=== PATIENT | male | born 1955 | race Caucasian/White ===

== ENCOUNTER 2018-02-14 12:56 | Observation (INO) | payer OTHER ==
[2018-02-14 13:49] LABS: #Eosinphils 0.1 thou/uL (0.0-0.7); #Lymphocytes 2.7 thou/uL (1.20-3.40); #Monocytes 0.6 thou/uL (0.11-0.59); #Neutrophils 3.7 thou/uL (1.40-6.50); %Basophils 0.2 % (0.0-1.0); %Eosinophils 1.6 % (0.0-10.0); %Lymphocytes 37.6 % (21.0-51.0); %Monocytes 8.3 % (0.0-10.0); %Neutrophils 52.3 % (42.0-75.0); Hemoglobin 12.9 g/dL (14.0-18.0); Mean Corpuscular HGB CONC 32.7 g/dL (32.0-36.0); Mean Corpuscular Hemoglobin 24.1 pg (27.0-31.0); Mean Corpuscular Volume 73.7 fL (78.0-98.0); Mean Platelet Volume 8.6 fL (7.4-10.4); Platelet Count 139 thou/uL (130-400); RBC Distribution Width 13.6 % (11.5-14.5); Red Blood Cell (RBC) Count 5.35 mill/uL (4.70-6.10); White Blood Cell (WBC) Count 7.1 thou/uL (4.8-10.8)
[2018-02-14 14:02] LABS: CKMB 2.2 ng/mL (0-6.6); Troponin I 0.029 ng/mL (< 0.028)
[2018-02-14 14:03] LABS: Hypochromia SLIGHT = 6-15 cells (100X) (0-5/hpf); MDiff Complete? YES; Microcytosis SLIGHT = 6-15 cells (100X) (0-5/hpf); PLT Morphology Comment Appears Adequate; Polychromasia SLIGHT = 2-3 cells (100X) (0-2/hpf)
[2018-02-14 14:04] LABS: ALT (SGPT) 31 U/L (8-55); AST (SGOT) 26 U/L (5-34); Albumin 3.7 g/dL (3.4-4.8); Alkaline Phosphatase 73 U/L (40-150); Anion Gap 10 mmol/L (10-20); BUN (Urea Nitrogen) 36 mg/dL (8.4-25.7); Bilirubin, Total 0.4 mg/dL (0.2-1.2); CK (CPK) 125 U/L (30-200); Calc. Creatinine Clearance 0 mL/min (70-130); Calcium 9.3 mg/dL (7.8-10.44); Carbon Dioxide 26 mmol/L (23-31); Chloride 107 mmol/L (98-107); Estimated GFR-MDRD 30; Globulin 2.8 g/dL (2.4-3.5); Glucose 120 mg/dL (80-115); Lipase 130 U/L (8-78); Potassium 4.6 mmol/L (3.5-5.1); Protein, Total 6.5 g/dL (5.8-8.1); Sodium 138 mmol/L (136-145)
--- NOTE | 2018-02-14 14:32 | RAD ---
CHEST 1 VIEW: Date: 02/14/18 INDICATION: Chest pain. COMPARISON: None. FINDINGS: There is mild cardiomegaly. There are patchy air space opacities within the right lung base. Left fuentes g is clear. There is a dual lead pacemaker overlying the left chest wall. No acute osseous abnormalit y is evident. IMPRESSION: 1. Patchy air space opacities in right lower lobe. Recommend correlation for pneumonia. Radiographic follow-up to resolution is recommended. 2. Mild cardiomegaly without evidence of cardiac decompensation. POS: [facility]
[2018-02-14] MEDS ORDERED: Enoxaparin Sodium 100 MG/ML SYRINGE ONE (15:56)
[2018-02-14] MEDS ORDERED: Enoxaparin Sodium 60 MG/0.6 ML SYRINGE ONE (15:57)
[2018-02-14 17:45] LABS: Troponin I 0.037 ng/mL (< 0.028)
[2018-02-14] MEDS ORDERED: cloNIDine 0.1 MG TAB PO PRN (19:20)
[2018-02-14] MEDS ORDERED: Dextrose 50% Abboject 50 ML SYRINGE SLOW IVP PRN (19:20)
[2018-02-14] MEDS ORDERED: Nitroglycerin 0.4 MG TAB (25 Tab Bottle) PO PRN (19:20)
[2018-02-14] MEDS ORDERED: hydrALAZINE 20 MG/ML VIAL SLOW IVP PRN (19:20)
[2018-02-14] MEDS ORDERED: Ondansetron PF 4 MG/2 ML Vial IVP PRN (19:20)
[2018-02-14] MEDS ORDERED: Acetaminophen 500 MG TAB PO PRN (19:20)
[2018-02-14] MEDS ORDERED: Ondansetron ODT 4 MG TAB PO PRN (19:20)
[2018-02-14] MEDS ORDERED: Dextrose 5% in Water 1,000 ML IV PRN (19:20)
[2018-02-14 19:41] VITALS: BMI 47.7
[2018-02-14 20:15] LABS: Troponin I 0.043 ng/mL (< 0.028)
[2018-02-14] MEDS: Famotidine 20 MG TAB PO SCH (22:37)
[2018-02-14] MEDS: Enoxaparin Sodium 80 MG/0.8 ML SYRINGE SC SCH (22:38)
--- NOTE | 2018-02-14 23:59 | HP ---
DATE OF ADMISSION: 02/14/2018 PRIMARY CARE PHYSICIAN: Clarisa phillips. CHIEF COMPLAINT: General weakness and dizziness. HISTORY OF PRESENT ILLNESS: This is a 62-year-old male who presented to [facility] complaining of increasing dizziness, general weakness, sharp pain to his upper shoulder blades and right lower extremity pain. The patient states he was getting of the shower preparing to go to a family when he felt lightheaded, dizzy, diaphoretic, and ill. The patient also experienced some sharp pain to his chest and back region. At which point, he sat down to try to relieve his symp toms. The patient states he had similar symptoms prior to undergoing a cardiac stent placement sever al years prior to this evaluation. The patient does admit to history of coronary artery disease with a cardiac stent in place, taking aspirin 81 mg daily. The patient states he recently traveled from [facility] to [facility] to attend a family , sitting in the car for ove r 6 hours. The patient states that while at a , he was unable to walk across the room without becoming extremely short of breath, generally weak and feeling like he was going to pass out. The p toby's states he looked ashen and Leung and sat down. The patient was evaluated by EMS slim tran and given aspirin and transported to the emergency room for evaluation. The patient does admit to a similar episode several weeks prior to this evaluation, resolving spontaneously. The patient stat es he scheduled for a cardiac stress test as well as a pacemaker device check in the next week. The patient denied any specific change to his chronic medication regimen. Family members with a recent i llness, recent vaccinations, fever, chills, or diarrhea. The patient underwent general evaluation in the emergency room with cardiac biomarkers showing elevated levels ranging between 0.029-0.037. The patient underwent EKG evaluation showing no acute changes with AV pacing. Chest imaging showed card iomegaly and bibasilar atelectasis. Due to patient's chronic kidney disease, the patient did not und ergo CT angiogram of the chest with recommendations to pursue ventilation perfusion study to rule out pulmonary embolus. PAST MEDICAL HISTORY: 1. Coronary artery disease status post cardiac stent placement. 2. History of atrial fibrillation, status post maze procedure. 3. Diabetes mellitus type 2, insulin requiring. 4. Hypertension. 5. Morbid obesity. 6. Obstructive sleep apnea. 7. Chronic kidney disease stage 3. PAST SURGICAL HISTORY: 1. Status post cardiac stent placement. 2. Status post pacemaker placement. 3. Status post maze procedure. CURRENT MEDICATIONS: List will need to be obtained by the family members, unavailable currently. ALLERGIES: No known drug allergies. FAMILY HISTORY: Positive for hypertension and diabetes mellitus. SOCIAL HISTORY: The patient resides outside of [place], [place]. No current alcohol, tobacco or illic it drug use. Accompanied by his in the emergency room. REVIEW OF SYSTEMS: The following complete review of systems was negative, unless otherwise mentioned in the HPI or below: Constitutional: Weight loss or gain, ability to conduct usual activities. Ski n: Rash, itching. Eyes: Double vision, pain. ENT/Mouth: Nose bleeding, neck stiffness, pain, tend erness. Cardiovascular: Palpitations, dyspnea on exertion, orthopnea. Respiratory: Shortness of b reath, wheezing, cough, hemoptysis, fever or night sweats. Gastrointestinal: Poor appetite, abdomin al pain, heartburn, nausea, vomiting, constipation, or diarrhea. Genitourinary: Urgency, frequency, dysuria, nocturia. Musculoskeletal: Pain, swelling. Neurologic/Psychiatric: Anxiety, depression. Allergy/Immunologic: Skin rash, bleeding tendency. Otherwise negative except as stated per HPI. PHYSICAL EXAMINATION: VITAL SIGNS: Currently, blood pressure 131/72, pulse 77, respiratory rate 20, temperature 97.5 degre es Fahrenheit, O2 saturation 98% on room air. GENERAL APPEARANCE: This is a 62-year-old male, alert and oriented x3, pleasant, in no acu te distress. HEENT: Pupils are equal, round, and reactive to light and accommodation. Extraocular muscles are in tact. No scleral icterus, no conjunctival injection. Nares patent. OP is clear. Teeth in fair rep air. NECK: Supple, no cervical adenopathy, no thyromegaly, no carotid bruits, no JVD appreciated. Cervic al spine with full active and passive range of motion. CHEST: Lungs are clear to auscultation bilaterally. CARDIOVASCULAR: S1, S2 with distant heart sounds. No murmur, rub or gallop appreciated. ABDOMEN: Obese, soft. Landmarks are difficult to palpate due to patient's body habitus. No rebound or guarding noted. EXTREMITIES: Warm and dry with fair turgor. No asymmetric edema noted. Bilateral pitting edema to the proximal shins. Bilateral calf tenderness to palpation. Pulses palpable distally at the dorsali s pedis, posterior tibial, and popliteal arteries bilaterally. Capillary refill less than 2 seconds. NEUROLOGIC: Cranial nerves II-XII are grossly intact. No focal or lateralizing signs appreciated. PERTINENT LABORATORY AND X-RAY FINDINGS: Sodium 138, potassium 4.6, chloride 107, CO2 of 26, BUN 36, creatinine 2.24, estimated GFR of 30, glucose 120, calcium 9.3. LFTs within normal limits. Troponi n I ranged between 0.029-0.037. BNP 109. Lipase 130. CBC showed a white blood cell count of 7.1, h emoglobin 13, hematocrit 40, MCV 74, platelet count 139 with 52% neutrophils. D-dimer 1.54. Portabl e chest x-ray dated 02/14/2018 showed airspace opacities in the right lower lobe. Mild cardiomegaly. EKG dated 02/14/2018 by my interpretation shows AV pacing with heart rates in the 70s-80s. No acut e ST-T wave changes noted. ASSESSMENT AND PLAN: 1. Chest pain. The patient will be placed in observation status. We will continue to trend cardiac biomarkers. Consult Cardiology Service in the a.m. given elevated troponin I initially. We will co ntinue aspirin 325 mg daily. Check fasting lipid profile. Plan for ventilation perfusion study to r ule out pulmonary embolus given patient's multiple risk factors, recent travel history and lower extr emity edema. 2. Elevated troponin I. Questionable demand ischemia. We will continue to trend cardiac biomarkers as outlined in #1. Continue aspirin 325 mg daily. Consult Cardiology service in the a.m. Check 2D transthoracic echocardiogram. 3. Chronic kidney disease stage 3 to 4. We will avoid nephrotoxic agents and limit contrast exposur e. Serial creatinine monitoring. 4. Elevated lipase. Questionable etiology. Clinical exam unrevealing. Repeat lipase in the a.m. 5. Coronary artery disease, chronic. Resume home cardiac medication once confirmed with family memb ers. 6. Diabetes mellitus type 2. Insulin sliding scale for reflexive coverage. ADA diet. Resume home diabetic regimen once confirmed. 7. Prophylaxis. Lovenox 30 mg subcutaneously daily. Pepcid 20 mg p.o. b.i.d. 8. Code status is FULL. Surrogate medical decision maker is patient's spouse.
[2018-02-15 05:52] LABS: Eosinophils 1 % (0-10); Hemoglobin 11.7 g/dL (14.0-18.0); Lymphocytes 54 % (21-51); MDiff Complete? YES; Mean Corpuscular HGB CONC 31.6 g/dL (32.0-36.0); Mean Corpuscular Hemoglobin 23.8 pg (27.0-31.0); Mean Corpuscular Volume 75.2 fL (78.0-98.0); Mean Platelet Volume 9.3 fL (7.4-10.4); Monocytes 6 % (0-10); Neutrophil 39 % (42-75); PLT Morphology Comment Appears Adequate; Platelet Count 124 thou/uL (130-400); RBC Distribution Width 13.8 % (11.5-14.5); Red Blood Cell (RBC) Count 4.92 mill/uL (4.70-6.10); White Blood Cell (WBC) Count 5.5 thou/uL (4.8-10.8)
[2018-02-15 06:12] LABS: Anion Gap 14 mmol/L (10-20); BUN (Urea Nitrogen) 40 mg/dL (8.4-25.7); Calc. Creatinine Clearance 72 mL/min (70-130); Calcium 8.9 mg/dL (7.8-10.44); Carbon Dioxide 21 mmol/L (23-31); Cardiac Risk 4.2 (Less than 4.5); Chloride 110 mmol/L (98-107); Cholesterol 105 mg/dl (< 200 Desired); Estimated GFR-MDRD 28; Glucose 172 mg/dL (80-115); HDL Cholesterol 25 mg/dL (>60 Neg Risk); LDL Cholesterol, Calculated 53 mg/dL; Potassium 4.5 mmol/L (3.5-5.1); Sodium 140 mmol/L (136-145); Triglycerides 134 mg/dL (Less than 150)
[2018-02-15] MEDS: HumaLOG 300 UNITS/3 ML VIAL SC PRN (06:34)
[2018-02-15] MEDS: Enoxaparin Sodium 80 MG/0.8 ML SYRINGE SC SCH (08:59)
[2018-02-15] MEDS ORDERED: Aspirin 325 MG TAB PO SCH (09:00)
--- NOTE | 2018-02-15 09:59 | ULT ---
ULTRASOUND WITH DOPPLER DUPLEX VENOUS LOWER EXTREMITY BILATERAL: Date: 02/15/18 CPT: 94097 ICD-10-PCS: [id number] INDICATION: Edema. TECHNIQUE: Color flow Doppler, spectral waveform analysis of pulsed Doppler, and [place]-scale imaging with jose juan christophe and augmentation, were used to evaluate the bilateral common femoral, femoral, popliteal, upsetting machine operator ior tibial, and superficial femoral, veins; and the proximal portions of the profunda femoral and gre ater saphenous, veins. FINDINGS: There is appropriate compressibility and flow within the imaged deep vein system of each lower extrem ity. IMPRESSION: No deep venous thrombosis of the imaged bilateral lower extremities. POS: [facility]
--- NOTE | 2018-02-15 12:29 | NM ---
NUCLEAR MEDICINE VENTILATION PERFUSION EVALUATION: Date: 02/15/18 CLINICAL HISTORY: Edema, respiratory difficulty. Clinical concern for pulmonary embolus. RADIOPHARMACEUTICAL: 8.9 mCi Xenon inhaled, 6.6 mCi technetium-99m MAA IV. FINDINGS: Evaluation of the ventilation portion of the exam reveals homogeneous radiotracer distribution throug hout each lung without significant retention. On perfusion imaging, there is a moderate sized focal p erfusion defect involving the lateral left mid lung zone. Right lung is homogeneous. Evaluating yesterday's chest radiograph, there is a battery pack from cardiac pacing device in the le ft chest, in a location that is correlative to the perfusion defect. IMPRESSION: Low probability VQ scan for pulmonary embolus. POS: [facility]
[2018-02-15] MEDS ORDERED: Spiriva 18 MCG CAP (Box of 5 Caps) INH PRN (18:28)
[2018-02-15] MEDS ORDERED: PROVENTIL INHALER 6.7 G (200 INHALATIONS) INH PRN (18:28)
--- NOTE | 2018-02-15 18:30 | PDOC.PN ---
- Subjective Encounter Start Date: 02/15/18 Encounter Start Time: 18:00 Subjective: f/u for gen weakness, CP, dizziness and elevated trop I. Feels ok overall -: and tolerated po intake without difficulty. No recurrent CP. - Objective Resuscitation Status: Resuscitation Status FULL:Full Resuscitation MAR Reviewed: Yes Vital Signs & Weight: Vital Signs (12 hours) Temp Pulse Resp BP Pulse Ox 02/15/18 15:54 97.5 F L 65 20 130/60 93 L 02/15/18 11:13 97.7 F 65 20 134/61 97 02/15/18 07:19 98.1 F 61 16 116/54 L 97 Weight Weight 352 lb 1.6 oz I&O: 02/14/18 02/15/18 02/16/18 06:59 06:59 06:59 Intake Total 240 720 Output Total 600 350 Balance -360 370 Result Diagrams: 02/15/18 04:48 02/15/18 04:48 Additional Labs: Accuchecks 02/15/18 02/15/18 02/14/18 17:17 11:16 20:04 POC Glucose 177 H 137 H 111 H Radiology Reviewed by me: Yes (V/Q scan - negative for PE) EKG Reviewed by me: Yes (Tele - Paced) Phys Exam - Physical Examination Constitutional: NAD HEENT: PERRLA, sclera anicteric, oral pharynx no lesions Neck: no nodes, no JVD, supple, full ROM Respiratory: no wheezing, no rales, no rhonchi, clear to auscultation bilateral S1, S2 Cardiovascular: RRR, no significant murmur, no rub, gallop Gastrointestinal: soft, non-tender, no distention, positive bowel sounds Musculoskeletal: pulses present, edema present Neurological: normal sensation, moves all 4 limbs Psychiatric: normal affect, A&O x 3 Skin: no rash, normal turgor, cap refill <2 seconds Dx/Plan (1) Chest pain Code(s): R07.9 - CHEST PAIN, UNSPECIFIED Status: Acute Comment: ? angina, plan for Cardiolite stress in am, continue ASA daily (2) Elevated troponin I level Code(s): R74.8 - ABNORMAL LEVELS OF OTHER SERUM ENZYMES Status: Acute Comment: Mild elevation, likely demand state, see #1 (3) CKD (chronic kidney disease), stage III Code(s): N18.3 - CHRONIC KIDNEY DISEASE, STAGE 3 (MODERATE) Status: Chronic Comment: Avoid nephrotoxic meds and limit contrast exposure (4) Elevated lipase Code(s): R74.8 - ABNORMAL LEVELS OF OTHER SERUM ENZYMES Status: Acute Comment: Repeat Lipase in am (5) CAD (coronary artery disease) Code(s): I25.10 - ATHSCL HEART DISEASE OF [place] CORONARY ARTERY W/O ANG PCTRS Status: Chronic Comment: See #1, continue ASA (6) DM II (diabetes mellitus, type II), controlled Code(s): E11.9 - TYPE 2 DIABETES MELLITUS WITHOUT COMPLICATIONS Status: Chronic Comment: ISS, resume home DM regimen, ADA - Plan plan discussed w/ family, out of bed/ambulate, DVT proph w/SCDs Stable overall -: [employer] in am -: Continue ASA 81mg daily -: D/C Lovenox -: Low volume IVF's * AM lab: BMP, Lipase
[2018-02-15] MEDS: Sodium Chloride 0.9% 1,000 ML IV SCH (18:33)
[2018-02-15] MEDS: Famotidine 20 MG TAB PO SCH (20:50)
[2018-02-16] MEDS: Ipratropium Bromide 2.5 ml Neb NEB SCH ×4 (00:57→19:15)
--- NOTE | 2018-02-16 02:46 | CON ---
DATE OF CONSULTATION: 02/15/2018 HISTORY OF PRESENT ILLNESS: Yusuf Lane is a 62-year-old white male from the [facility] who was in town for a and started having some pain between his scapula and was brought to the hospital. He states that while living in [place], [place], 6 or 7 years ago, he started to have atrial fibrillation. He underwent a maze procedure through bilateral thoracotomies. Apparently with this, he developed heart rate of 20 per minute and a permanent pacemaker needed to be placed. He then developed pneumonia after that and was in a coma. He developed renal insufficiency and was in the hospital approximately 3 weeks after the maze procedure. Two or three years ago, he had a coronary artery stent placed. He then traveled from [facility] to [facility] for over 6 hours. He got up to take a shower and felt extremely weak after taking the shower yesterday morning and also had some pain between the scapula on the back. He went to the and apparently was very weak, had trouble even getting up. His stated that he was very pale and ashen. He also continues intermittently have this infrascapular pain. Troponin I was minimally elevated in the emergency room and he was admitted for further evaluation. Due to the prolonged 6-hour trip, he underwent a V/Q scan (CT angiogram was not performed due to his renal insufficiency). This was low probability for pulmonary embolism. He also underwent lower extremity venous ultrasound, which revealed no deep venous thrombosis. At the present time, he feels well. PAST MEDICAL HISTORY: Coronary artery disease, history of atrial fibrillation, diabetes, hypertension, hypercholesterolemia, obesity, obstructive sleep apnea, chronic kidney disease. OPERATIONS: Maze procedure, pacemaker placement ([employer]), and coronary artery stent placement. MEDICATIONS: Albuterol inhaler p.r.n., aspirin 81 daily, atorvastatin 10 mg daily, carvedilol ER 40 mg daily, cetirizine 10 mg daily, vitamin B12 of 1000 mcg daily, fosinopril 20 mg daily, furosemide 40 daily, Novolog 5 units p.r.n., insulin, Victoza 1.2 daily, and Spiriva inhaler. ALLERGIES: DILTIAZEM, cause angioedema with throat and tongue swelling. SOCIAL HISTORY: Does not smoke or drink. Lives outside of [place]. FAMILY HISTORY: Negative for coronary artery disease. REVIEW OF SYSTEMS: Twelve-point review of systems, otherwise unremarkable. PHYSICAL EXAMINATION: VITAL SIGNS: Blood pressure 130/60, pulse of 65, blood pressure in the emergency room was as low as 96/60. HEENT: PERRL with bilateral ear creases. LUNGS: Clear. CARDIAC: S1 and S2 are normal without any S3, S4 or murmurs. ABDOMEN: Obese. Normal bowel sounds, no tenderness. EXTREMITIES: Revealed no clubbing or cyanosis. There was 1+ pretibial edema. NEUROLOGIC: Grossly intact. SKIN: Warm and dry. LABORATORY DATA: EKG reveals A-V pacing. Sodium 140, potassium 4.5, chloride 110, carbon dioxide 21, BUN 40, creatinine 2.39. Troponin I is up to 0.043. Cholesterol 105, triglycerides 134, HDL 25, LDL 53. BNP 108.6. D-dimer 1.54. Hemoglobin 11.7, hematocrit 37.0, white count 5500, and platelets 124,000. IMPRESSION: 1. Atypical infrascapular pain. 2. Elevated troponin I's, probably secondary to chronic kidney disease. 3. Episode of extreme weakness, which may be related to blood pressure. He was somewhat hypotensive in the emergency room and since being admitted. The carvedilol and fosinopril as well as Lasix has been discontinued and blood pressure has improved somewhat. 4. History of hypertension, hyperlipidemia, under good control. 5. Diabetes. 6. Obesity. 7. History of coronary artery stent placement. 8. History of atrial fibrillation, status post operative maze procedure. 9. Status post pacemaker placement. 10. Anemia. RECOMMENDATIONS: I feel that his minimally elevated troponin I's probably secondary to his chronic kidney disease. Fosinopril and furosemide have been held at this time, his blood pressure has started to normalize. With his history of atrial fibrillation, we will gradually resume carvedilol. He will undergo Adenosine Cardiolite testing. Also he will be started on intravenous fluids in case cardiac catheterization is needed. He is continued to be monitored daily. He also was anemic and has hypochromic-microcytic anemia. Iron and iron binding capacity will be checked. [facility]
[2018-02-16 05:19] LABS: Anion Gap 12 mmol/L (10-20); BUN (Urea Nitrogen) 35 mg/dL (8.4-25.7); Calc. Creatinine Clearance 89 mL/min (70-130); Calcium 9.1 mg/dL (7.8-10.44); Carbon Dioxide 20 mmol/L (23-31); Chloride 108 mmol/L (98-107); Estimated GFR-MDRD 35; Glucose 155 mg/dL (80-115); Iron 78 ug/dL (65-175); Iron Binding Capacity, Total 264 mcg/dL (261-462); Lipase 110 U/L (8-78); Potassium 4.7 mmol/L (3.5-5.1); Sodium 135 mmol/L (136-145)
[2018-02-16] MEDS ORDERED: Furosemide 40 MG TAB PO SCH (09:00)
[2018-02-16] MEDS ORDERED: INSULIN GLARGINE HUM REC ANLOG 150 UNIT SQ SCH (09:00)
[2018-02-16] MEDS ORDERED: CARVEDILOL PHOSPHATE 40 MG PO SCH (09:00)
[2018-02-16] MEDS ORDERED: Non-Formulary Item 1 EACH (Cetirizine Hcl [Allergy Relief] 10 MG) PO SCH (09:00)
[2018-02-16] MEDS ORDERED: Liraglutide [Victoza 2-Pak] 1.2 MG SQ SCH (09:00)
[2018-02-16] MEDS: Atorvastatin Calcium 10 MG TAB PO SCH (09:14)
[2018-02-16] MEDS: Cyanocobalamin (Vitamin B-12) 1,000 MCG TAB PO SCH (09:14)
[2018-02-16] MEDS: Carvedilol 6.25 MG TAB PO SCH ×2 (12:18→17:25)
[2018-02-16] MEDS: Loratadine 10 MG TAB PO SCH (12:19)
[2018-02-16] MEDS: Insulin Glargine 120 UNITS in Pre-Filled Syringe 1 EACH SC SCH (12:22)
[2018-02-16] MEDS: Sodium Chloride 0.9% 1,000 ML IV SCH (12:25)
--- NOTE | 2018-02-16 17:23 | PDOC.PN ---
- Subjective Encounter Start Date: 02/16/18 Encounter Start Time: 17:10 Subjective: f/u for CP awaiting stress testing. No CP, SOB. - Objective Resuscitation Status: Resuscitation Status FULL:Full Resuscitation MAR Reviewed: Yes Vital Signs & Weight: Vital Signs (12 hours) Temp Pulse Resp BP BP BP Pulse Ox 02/16/18 15:28 97.7 F 66 20 138/64 95 02/16/18 12:14 60 14 02/16/18 11:48 70 16 137/65 96 02/16/18 08:00 98.2 F 74 20 124/58 L 96 02/16/18 06:22 65 14 98 Weight Weight 352 lb 1.6 oz I&O: 02/15/18 02/16/18 02/17/18 06:59 06:59 06:59 Intake Total 240 720 811 Output Total 012 000 5866 Ihoitmq -748 -105 -889 Result Diagrams: 02/15/18 04:48 02/16/18 04:28 Additional Labs: Accuchecks 02/16/18 02/16/18 02/15/18 16:47 11:42 20:30 POC Glucose 224 H 133 H 196 H 02/15/18 17:17 POC Glucose 177 H Radiology Reviewed by me: Yes (2D echo - EF 45-50%) EKG Reviewed by me: Yes (Tele - Paced) Phys Exam - Physical Examination Constitutional: NAD HEENT: PERRLA, sclera anicteric, oral pharynx no lesions Neck: no nodes, no JVD, supple, full ROM Respiratory: no wheezing, no rales, no rhonchi, clear to auscultation bilateral S1, S2 Cardiovascular: RRR, no significant murmur, no rub, gallop Gastrointestinal: soft, non-tender, no distention, positive bowel sounds Musculoskeletal: pulses present, edema present Neurological: non-focal, normal sensation, moves all 4 limbs Psychiatric: normal affect, A&O x 3 Skin: normal turgor, cap refill <2 seconds Dx/Plan (1) Chest pain Code(s): R07.9 - CHEST PAIN, UNSPECIFIED Status: Acute Comment: ? angina, plan for Cardiolite stress in am, continue ASA daily (2) Elevated troponin I level Code(s): R74.8 - ABNORMAL LEVELS OF OTHER SERUM ENZYMES Status: Acute Comment: Mild elevation, likely demand state, see #1 (3) CKD (chronic kidney disease), stage III Code(s): N18.3 - CHRONIC KIDNEY DISEASE, STAGE 3 (MODERATE) Status: Chronic Comment: Avoid nephrotoxic meds and limit contrast exposure (4) Elevated lipase Code(s): R74.8 - ABNORMAL LEVELS OF OTHER SERUM ENZYMES Status: Acute Comment: Repeat Lipase in am (5) CAD (coronary artery disease) Code(s): I25.10 - ATHSCL HEART DISEASE OF [place] CORONARY ARTERY W/O ANG PCTRS Status: Chronic Comment: See #1, continue ASA (6) DM II (diabetes mellitus, type II), controlled Code(s): E11.9 - TYPE 2 DIABETES MELLITUS WITHOUT COMPLICATIONS Status: Chronic Comment: ISS, resume home DM regimen, ADA - Plan plan discussed w/ family, out of bed/ambulate Stable overall -: Awaiting DIRECTOR OF CARDIAC REHABILITATION in am -: Continue IVF's -: ASA 81mg po daily -: AM lab: BMP * .
[2018-02-16] MEDS: HumaLOG 300 UNITS/3 ML VIAL SC PRN ×2 (17:27→20:41)
[2018-02-16] MEDS: Famotidine 20 MG TAB PO SCH (20:40)
[2018-02-17] MEDS: Ipratropium Bromide 2.5 ml Neb NEB SCH ×4 (00:28→19:04)
[2018-02-17 04:54] LABS: Anion Gap 13 mmol/L (10-20); BUN (Urea Nitrogen) 35 mg/dL (8.4-25.7); Calc. Creatinine Clearance 97 mL/min (70-130); Calcium 8.7 mg/dL (7.8-10.44); Carbon Dioxide 21 mmol/L (23-31); Chloride 107 mmol/L (98-107); Estimated GFR-MDRD 39; Glucose 115 mg/dL (80-115); Potassium 4.4 mmol/L (3.5-5.1); Sodium 137 mmol/L (136-145)
[2018-02-17] MEDS: Carvedilol 6.25 MG TAB PO SCH ×2 (08:04→17:27)
[2018-02-17] MEDS: Atorvastatin Calcium 10 MG TAB PO SCH (08:05)
[2018-02-17] MEDS: Sodium Chloride 0.9% 1,000 ML IV SCH (10:57)
[2018-02-17] MEDS: Insulin Glargine 120 UNITS in Pre-Filled Syringe 1 EACH SC SCH (10:58)
[2018-02-17] MEDS: Loratadine 10 MG TAB PO SCH (10:59)
[2018-02-17] MEDS: Cyanocobalamin (Vitamin B-12) 1,000 MCG TAB PO SCH (10:59)
[2018-02-17] MEDS ORDERED: Regadenoson 0.4 MG/5 ML SYRINGE ONE (14:49)
--- NOTE | 2018-02-17 15:36 | PDOC.PN ---
- Subjective Encounter Start Date: 02/17/18 Encounter Start Time: 15:35 Subjective: f/u for CP with completion of first portion of [employer] today. Awaiting -: resting imaging in am. Overall feeling ok. - Objective Resuscitation Status: Resuscitation Status FULL:Full Resuscitation MAR Reviewed: Yes Vital Signs & Weight: Vital Signs (12 hours) Temp Pulse Resp BP BP Pulse Ox 02/17/18 15:08 80 20 02/17/18 10:55 98.0 F 78 20 154/67 H 95 02/17/18 08:17 86 20 94 L 02/17/18 07:33 98.4 F 61 20 152/65 H 94 L 02/17/18 03:51 72 145/68 H Weight Weight 352 lb 8 oz I&O: 02/16/18 02/17/18 02/18/18 06:59 06:59 06:59 Intake Total 720 2247 154 Output Total 825 2525 275 Balance -105 -278 -121 Result Diagrams: 02/15/18 04:48 02/17/18 04:00 Additional Labs: Accuchecks 02/17/18 02/16/18 02/16/18 11:04 20:11 16:47 POC Glucose 238 H 244 H 224 H Laboratory Tests 02/15/18 02/16/18 04:48 04:28 BUN 35 H Creatinine 1.94 H Triglycerides 134 Cholesterol 105 LDL Cholesterol, Calc 53 HDL Cholesterol 25 Lipase 110 H Radiology Reviewed by me: Yes (2D echo - EF 45-50%, limited exam) EKG Reviewed by me: Yes (Tele - pacing) Phys Exam - Physical Examination Constitutional: NAD HEENT: PERRLA, sclera anicteric, oral pharynx no lesions Neck: no nodes, no JVD, supple, full ROM Respiratory: no wheezing, no rales, no rhonchi, clear to auscultation bilateral Cardiovascular: RRR, no significant murmur, no rub, gallop Gastrointestinal: soft, non-tender, no distention, positive bowel sounds Musculoskeletal: pulses present, edema present Neurological: normal sensation, moves all 4 limbs Psychiatric: normal affect, A&O x 3 Skin: no rash, normal turgor, cap refill <2 seconds Dx/Plan (1) Chest pain Code(s): R07.9 - CHEST PAIN, UNSPECIFIED Status: Acute Comment: ? angina, 2- day Cardiolite stress pending, continue ASA daily (2) Elevated troponin I level Code(s): R74.8 - ABNORMAL LEVELS OF OTHER SERUM ENZYMES Status: Acute Comment: Mild elevation, likely demand state, see #1 (3) CKD (chronic kidney disease), stage III Code(s): N18.3 - CHRONIC KIDNEY DISEASE, STAGE 3 (MODERATE) Status: Chronic Comment: Avoid nephrotoxic meds and limit contrast exposure, stable (4) Elevated lipase Code(s): R74.8 - ABNORMAL LEVELS OF OTHER SERUM ENZYMES Status: Acute Comment: Repeat Lipase in am (5) CAD (coronary artery disease) Code(s): I25.10 - ATHSCL HEART DISEASE OF [place] CORONARY ARTERY W/O ANG PCTRS Status: Chronic Comment: See #1, continue ASA (6) DM II (diabetes mellitus, type II), controlled Code(s): E11.9 - TYPE 2 DIABETES MELLITUS WITHOUT COMPLICATIONS Status: Chronic Comment: ISS, resume home DM regimen, ADA - Plan plan discussed w/ family, out of bed/ambulate Stable overall -: Await resting imaging from Cardiolite -: ASA daily -: Continue Coreg -: Continue Lipitor * AM lab: BMP * Likely home after completion of resting images
[2018-02-17] MEDS: HumaLOG 300 UNITS/3 ML VIAL SC PRN ×2 (17:27→21:09)
[2018-02-17] MEDS ORDERED: Atorvastatin Calcium 10 MG TAB PO SCH (21:00)
[2018-02-17] MEDS: Famotidine 20 MG TAB PO SCH (21:08)
[2018-02-18] MEDS: Ipratropium Bromide 2.5 ml Neb NEB SCH ×2 (00:24→08:24)
[2018-02-18 05:25] LABS: Anion Gap 13 mmol/L (10-20); BUN (Urea Nitrogen) 30 mg/dL (8.4-25.7); Calc. Creatinine Clearance 102 mL/min (70-130); Calcium 8.7 mg/dL (7.8-10.44); Carbon Dioxide 18 mmol/L (23-31); Chloride 108 mmol/L (98-107); Estimated GFR-MDRD 41; Glucose 238 mg/dL (80-115); Potassium 4.6 mmol/L (3.5-5.1); Sodium 134 mmol/L (136-145)
[2018-02-18] MEDS: HumaLOG 300 UNITS/3 ML VIAL SC PRN (06:03)
[2018-02-18] MEDS: Sodium Chloride 0.9% 1,000 ML IV SCH (06:40)
[2018-02-18] MEDS: Carvedilol 6.25 MG TAB PO SCH (09:24)
[2018-02-18] MEDS: Insulin Glargine 120 UNITS in Pre-Filled Syringe 1 EACH SC SCH (09:25)
[2018-02-18] MEDS: Loratadine 10 MG TAB PO SCH (09:25)
[2018-02-18] MEDS: Cyanocobalamin (Vitamin B-12) 1,000 MCG TAB PO SCH (09:25)
[2018-02-18] MEDS ORDERED: hydrALAZINE 25 MG TAB PO SCH ×2 (10:15→21:00)
[2018-02-18] MEDS ORDERED: Furosemide 40 MG TAB PO SCH (10:15)
[2018-02-18] MEDS ORDERED: Rivaroxaban 15 MG TAB PO SCH (10:15)
[2018-02-18] MEDS ORDERED: Furosemide 20 MG TAB PO SCH (10:15)
[2018-02-18 11:32] VITALS: BP 151/83; TEMP 97.7
--- NOTE | 2018-02-18 11:33 | NM ---
CARDIAC SPECT WITH EF AND WALL MOTION: History: 62-year-old male with history of coronary artery disease, status post stent, Afib, hypertension, diab etes mellitus and dyslipidemia with chest pain. This is a Lexiscan Sestamibi study. FINDINGS: The patient was injected with 31.3 mCi Technetium 99M Sestamibi intravenously for stress images and 3 3 mCi Technetium 99M Sestamibi intravenously for resting images. Multiple SPECT images in the short axis, vertical long axis, and horizontal long axis demonstrates no scan evidence for infarct or ischemia. TID: 1.17 LHR: 0.40 EDV: Elevated at 202 ml Ejection fraction: 49% MYOCARDIAL PERFUSION WALL MOTION: No focal wall motion abnormality. IMPRESSION: Elevated EDV at 202 ml. 49% ejection fraction. No overt infarct or ischemia. POS: [facility]
--- NOTE | 2018-02-18 21:39 | DIS ---
DATE OF ADMISSION: 02/14/2018 DATE OF DISCHARGE: 02/18/2018 CONDITION AT THE TIME OF DISCHARGE: Stable and improved. DISCHARGE DIAGNOSES: 1. Atypical chest pain. 2. Elevation of cardiac enzymes in the form of elevated troponin, likely demand ischemia. 3. Chronic kidney disease stage 3. 4. Coronary artery disease with history of stents. 5. Diabetes mellitus type 2. 6. Paroxysmal atrial fibrillation on pacemaker interrogation. DISCHARGE MEDICATIONS: Resume home medication as per the HPI. New medication, Xarelto 15 mg at bedt benton. Please note that the patient has not been taken off of his fosinopril at this time given his hi story of chronic kidney disease and diabetes. INHOUSE CONSULTATION: Home medications as follows, Victoza 1.2 mg subcutaneously daily, albuterol p. r.n., Spiriva p.r.n. 88 mcg daily, NovoLog sliding scale, insulin Glargine 150 units subcutaneous jamel ly, Lasix 40 mg daily, Lipitor 10 mg daily, fosinopril 20 mg daily, vitamin B12 daily, carvedilol 40 mg daily, aspirin 81 mg daily. Primary care physician per primary manager field investigations is out of town in [place], [place]. The patient cami l follow up with them in 1-2 weeks. PROCEDURES DONE IN THE HOSPITAL: 1. V/Q scan which was low probability for pulmonary embolism. 2. Lower extremity ultrasound Doppler which is negative for bilateral DVT. 3. Transthoracic echocardiogram which shows EF of 45% -50% with pacemaker wires in right ventricle. Nuclear medicine stress test, which is negative for any reversible or fixed defect. EF estimated at 49%. The patient has been cleared for discharge by Dr. Tyler this morning. HISTORY OF PRESENTING ILLNESS: Mr. Lane is a very pleasant 62-year-old male with known history of coronary artery disease, chronic kidney disease as well as diabetes and history of atrial fibrilla tion, status post maze procedure, who presented to the emergency room with complaints of generalized weakness and dizziness. He was visiting [place] for a when he had repeated episodes of sharp c hest pain associated with lightheadedness, dizziness, diaphoresis, and generalized weakness. He was brought to the emergency room and reported that he was actually scheduled for a cardiac test as well as a pacemaker checked by his manager field investigations in [place]. Upon presentation, his EKG was unremarkable a nd chest x-ray did not show any infiltrates. There was some question of possible pulmonary embolism because the patient has driven from [place] to [place] for this . He underwent a lower extremit y ultrasound which was negative and he was admitted for further evaluation of his chest pain. His ca rdiac enzymes were in the indeterminate range at 0.029. Please see admission history and physical fo r further details. HOSPITAL COURSE: The patient's cardiac workup and pulmonary embolism workup was negative as above. He underwent nuclear medicine stress test and echocardiogram. He also had a negative V/Q scan with l ow probability for pulmonary embolism and negative lower extremity Doppler ultrasound. Cardiology wa s consulted and Dr. Tyler saw the patient. Briefly his PRASANTH inhibitors and Lasix were held because he had evidence of some acute renal insufficiency on top of chronic renal insufficiency. IV fluids were started and his renal insufficiency improved. As of this morning, all the workup has been negative and the patient is symptom free and has been siobhan ared for discharge by Cardiology. I have seen and examined the patient this morning. PHYSICAL EXAMINATION: VITAL SIGNS: Temperature 97.7, pulse of 86, respirations 20, saturating 95% on room air, blood press ure 151/83. GENERAL APPEARANCE: No acute distress, awake, alert, and oriented x3. CHEST: Clear to auscultation bilaterally. Rate and rhythm is regular. Please note that according to the nursing staff, the patient's pacemaker was interrogated and he was started on Xarelto by Dr. Tyler. Xarelto was given 1 dose prior to discharge by Dr. Tyler and we have been instructed to give him a prescription for the same. He will follow up with his own card iologist with regards to that. I have encouraged him to get the records faxed over to his physician in [place], [place]. He verbalized understanding. Hospitalization was prolonged because of the nee d for 2-day cardiac stress test.
[2018-02-19] MEDS ORDERED: Furosemide 40 MG TAB PO SCH (07:30)
[2018-02-19] MEDS ORDERED: Rivaroxaban 10 MG TAB PO SCH (09:00)
--- NOTE | 2018-02-21 16:35 | STRESS ---
Acquisition Time: 2018-02-17 09:21:27 Total Exercise Time: 00:01:00 Test Indications: CHEST PAIN Medications: Protocol: LEXISCAN Max HR: 088 BPM 55% of Pred: 158 BPM Max BP: 138/070 mmHG Max Work Load: 1.0 METS RESTING ECG: A-V PACED AT 65 BPM SYMPTOMS: NONE NORMAL BP RESPONSE ECTOPY: NONE ECG STRESS: NO SIGNIFICANT CHANGES INTERPRETATION: INDETERMINATE ECG/AWAIT NUCLEAR IMAGES FOR DEFINITIVE DIAGNOSIS Confirmed by ANGELINA CARDOZA M.D. ([id number] on 02/21/2018 4:35:02 PM Referred By: MD Wan DONATO Confirmed By:ANGELINA CARDOZA M.D.
== END 2018-02-18 12:04 | disposition home or self-care (01) ==
LOC: ERS 12:56 → ERHOLD 16:00 → 2SW 19:05
PROVIDERS: ADMIT Family Medicine; ATTEND Family Medicine
DX: R07.89 Other chest pain (principal); E11.22 Type 2 diabetes mellitus with diabetic chronic kidney disease; N18.3 Chronic kidney disease, stage 3 (moderate); I25.10 Atherosclerotic heart disease of native coronary artery without angina pectoris; I48.0 Paroxysmal atrial fibrillation; R74.8 Abnormal levels of other serum enzymes; Z79.82 Long term (current) use of aspirin; Z79.899 Other long term (current) drug therapy
CPT/HCPCS: 36415; 36416; 71045; 78452; 78582; 80048; 80053; 80061; 82550; 82553; 83540; 83550; 83690; 83880; 84484; 85007; 85025; 85027; 85379; 90471; 90686; 93005; 93017; 93306; 93970; 94640; 94760; 96360; 96361; 96372; A9500; A9540; A9558; G0008; G0378; J1650; J2785; J7644